=== PATIENT | female | born 1980 | race Caucasian/White ===

== ENCOUNTER 2022-12-22 14:24 | Observation (INO) | payer BC ==
--- OUTSIDE RECORDS SUMMARY | 2022-12-22 14:29 | XMS REPORT | Continuity of Care Document ---
:1980 Author Organization [facility] Address [address] [place] [address] [place] [id number] Care Team Providers Name Role Phone Ngrusty_Tho Attending Clinician Unavailable CHRGERMANEN_F Attending Clinician Unavailable Angelina Attending Clinician Unavailable ZEV RAMIREZ Attending Clinician Unavailable SARWAT Attending Clinician Unavailable KANDY LIAO Attending Clinician Unavailable PORSHA RAMON Attending Clinician Unavailable SUSAN ARMENTA Attending Clinician Unavailable DONN KASPER Attending Clinician Unavailable CAYETANO HAYDEN Attending Clinician Unavailable Ngrusty_Tho Admitting Clinician Unavailable CHRETIEN_F Admitting Clinician Unavailable Torres_cesarkunbi Admitting Clinician Unavailable SARWAT Admitting Clinician Unavailable CAYETANO HAYDEN Admitting Clinician Unavailable Payers Payer Name Policy Type Policy Number Effective Date Expiration Date S dav[place] [id number] 2019 ADVANTAGE (H[place]) 00:00:[place] [id number] 2018 00:00:00 Problems Condition Condition Condition Status Onset Resolution Last Treating Co mments Source Name Details Category Date Date Treatment Clinician Date Systemic Systemic Problem Active [place] lupus Lupus da erythemato Erythemato [facility] Mixed Mixed Problem Active [place] hyperlipid Hyperlipid da emia emia [facility] Body mass Body Mass Problem Active [place] index 30+ Index 30+ da - obesity - 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 Social History Smoking Status Start Date Stop Date Source Never Smoker [facility] Program Medications Ordered Filled Start Stop Current Ordering Indication Dosage Frequency Signature Comments Components Source Medication Medication Date Date Medication? Clinician (SIG) Name Name hydroxychlo hydroxychlo No 1 BID hydroxychl [place] roquine 200 roquine 200 oroquine da mg tablet mg tablet 200 mg Epi scop Take 1 Take 1 tablet al tablet tablet Take 1 Health twice a day twice a day tablet Outreac by oral by oral twice a h route. route. day by Program oral route. lisinopril lisinopril No 1 Q1D lisinopril [place] 10 mg 10 mg 10 mg da tablet Take tablet Take tablet [facility] 1 tablet 1 tablet Take 1 al every day every day tablet Hea lth by oral by oral every day Outr eac route. for route. for by oral h blood blood route. for Program pressure. pressure. blood pressure. hydroxychlo hydroxychlo No hydroxychl [place] roquine 200 roquine 200 oroquine da mg tablet mg tablet 200 mg Epi scop TAKE 1 TAKE 1 tablet al TABLET BY TABLET BY TAKE 1 Hea lth MOUTH TWICE MOUTH TWICE TABLET BY Outreac A DAY A DAY MOUTH h TWICE A Program DAY lisinopril lisinopril No lisinopril [place] 10 mg 10 mg 10 mg da tablet TAKE tablet TAKE tablet [facility] 1 TABLET BY 1 TABLET BY TAKE 1 al MOUTH EVERY MOUTH EVERY TABLET BY Health DAY for DAY for MOUTH Outreac blood blood EVERY DAY h pressure pressure for blood Pr ogram pressure phentermine phentermine No 1 Q1D phentermin [place] 37.5 mg 37.5 mg e 37.5 mg da tablet Take tablet Take tablet [facility] 1 tablet 1 tablet Take 1 al every day every day tablet Hea lth by oral by oral every day Outr eac route in route in by oral h the the route in Program morning. morning. the morning. 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 [facility] Index) Health Outreach Program BP Systolic 2022-08-07 00:00:00 118 [facility] Body Weight 2022-08-07 00:00:00 3730 [facility]oz_av[facility] BP Diastolic 2022-07-06 00:00:00 90 mm[facility]Hg[facility] Height 2022-07-06 00:00:00 65 [in_i] [facility] BMI (Body Mass 2022-07-06 00:00:00 38.8 kg/m2 [place] 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 [facility] Index) Health Outreach Program BP Systolic 2022-07-06 00:00:00 149 mm[facility]Hg[facility] Body Weight 2022-07-06 00:00:00 3728 [oz_av[facility] Procedures Procedure Date / Time Performed Performing Clinician Sourc e Hysterectomy [facility] Hemorrhoidectomy [facility] opal Health Outreach Program Delivery [facility]al [facility] Outreach Program Plan of Care Planned Activity Planned Date Details Comments Source Future Scheduled 2022-07-10 CMP, serum or plasma [place] Test 00:00:00 [code = CMP, serum or [facility] plasma] Outreach Progra m Future Scheduled 2022-07-10 CBC w/ auto diff [code [place] Test 00:00:00 = CBC w/ auto diff] [facility] Future Scheduled 2022-07-10 ESR (erythrocyte [place] Test 00:00:00 sedimentation rate), [facility] blood [code = ESR Outreach P rogram (erythrocyte sedimentation rate), blood] Future Scheduled 2022-07-10 C reactive protein, Sweeney chantal Test 00:00:00 QN, serum or plasma [facility] [code = C reactive Outreach Program protein, QN, serum or plasma] Future Scheduled 2022-07-10 MARQUISE (antinuclear [place] Test 00:00:00 antibodies) panel, [facility] serum [code = MARQUISE Outreach P rogram (antinuclear antibodies) panel, serum] Future Scheduled 2022-07-10 lipid panel, serum [place] Test 00:00:00 [code = lipid panel, [facility] al Health serum] Outreach Progra m Future Scheduled 2022-07-10 HbA1c (hemoglobin [place] 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 Test 00:00:00 A1c), blood [code = [facility] HbA1c (hemoglobin Outreach P rogram A1c), blood] Future Scheduled 2022-07-10 vitamin D, 25-hydroxy, [place] Test 00:00:00 total, serum [code = [facility] vitamin D, 25-hydroxy, Outre ach Program total, serum] Future Scheduled 2022-07-10 rf (rheumatoid [facility] Test 00:00:00 factor), serum [code = [facility] rf (rheumatoid Outreach Prog celestina factor), serum] Future Scheduled 2022-07-10 protein/creatinine, Sweeney chantal Test 00:00:00 ratio, urine [code = [facility] protein/creatinine, Outreach Program ratio, urine] Encounters Start End Encounter Admission Attending Care Care Encounter Source Date/Time Date/Time Type Type Clinicians Facility Department ID 2022-08-25 2022-08-25 Outpatient [facility] [id number] [place] 00:00:00 00:00:00 1108 [facility] 2022-08-25 2022-08-25 [facility] [place] [id number] [place] 00:00:00 00:00:00 0306 [facility] 2022-08-10 2022-08-10 Outpatient [facility] [id number] [place] 00:00:00 00:00:00 1024 [facility] 2022-08-07 2022-08-07 Outpatient [facility] [id number] [place] 00:00:00 00:00:00 1021 [facility] 2022-08-07 2022-08-07 Jaqui [facility] [place] - [id number] Sushma yehgoilan 00:00:00 00:00:00 Aarti Osborn [facility] POSTAL SORTING OFFICER: 09[address] [facility] [phone] Pamella dimas , Ph. 2022-07-28 2022-07-28 Outpatient Ngrusty_Jhony [facility] [id number] [place] 00:00:00 00:00:00 1011 [facility] 2022-07-24 2022-07-24 Outpatient Nguyen_[place] [id number] [place] 00:00:00 00:00:00 1007 [facility] 2022-07-17 2022-07-17 Outpatient Nguyen_Henryo [facility] [id number] [place] 00:00:00 00:00:00 0930 [facility] 2022-07-06 2022-07-06 Outpatient Nguyen_Henryo [facility] [id number] [place] 00:00:00 00:00:00 0919 [facility] 2022-07-06 2022-07-06 Jaqui [facility] [place] - [id number] [place] 00:00:00 00:00:00 Aarti Osborn, [facility] POSTAL SORTING OFFICER: 1700 [facility] [phone] Pamella dimas , Ph. 2022-06-09 2022-06-09 Outpatient CHRETIEN_F [facility] [id number] [place] 00:00:00 00:00:00 [facility] 2021-11-12 2021-11-12 Outpatient Obisesan_ad VAHOP [facility] 875 [place] 05:17:00 05:17:00 ekunbi 0126 [facility] 2020-10-28 2020-10-28 Outpatient Obisesan_ad VAHOP [facility] 875 [place] 05:14:00 05:14:00 ekunbi 0111 [facility] 2020-10-28 2020-10-28 Outpatient Obisesan_ad MEHOP [facility] [id number] [place] 05:14:00 05:14:00 ekunbi 1113 [facility] 2019-09-03 2019-09-04 Emergency ER JAMES, [facility] [id number] [place] 21:40:00 01:36:00 ZEV -[id number] [facility] 2019-08-07 2019-08-07 Outpatient SCHAUBROECK [facility] [id number] [place] 00:00:00 00:00:00 _L 021 [facility] 2019-08-06 2019-08-06 Emergency ER JAMES, [facility] [id number] [place] 19:32:00 23:51:00 ZEV -[id number] [facility] 2009-08-21 2009-08-21 Emergency ER UGORJI, [facility] [id number] [place] 15:06:00 17:58:00 CLEBELLO -[id number] [facility] 2002-08-21 2002-08-21 Outpatient EL YENNY, [facility] [id number] [place] 08:27:00 08:27:00 PALIVEWILL -[id number] [facility] 2001-12-26 2001-12-26 Emergency ER GEOVANY, [facility] [id number] [place] 15:50:00 21:00:00 ASEM -[id number] [facility] 2001-08-20 2001-08-21 Emergency ER UGORJI, [facility] [id number] [place] 23:27:00 03:40:00 CLEBELLO -[id number] [facility] 2001-02-18 2001-02-18 Emergency ER LONC, [facility] [id number] [place] 17:41:00 21:20:00 ADJADAM -[id number] [facility] 2000-05-06 2000-05-06 Emergency EL UGORJI, [facility] [id number] [place] 14:22:00 16:40:00 CLEBELLO -[id number] [facility] 2000-04-06 2000-04-09 Inpatient UR HUCAYETANO Gallagher [facility] [id number] [place] 20:18:00 18:00: -[id number] [facility] 2000-03-11 2000-03-11 Outpatient CAYETANO PELLETIER [facility] D00 [id number] [place] 10:45:00 10:45:00 -[id number] [facility] 2000-03-03 2000-03-03 Outpatient CAYETANO PELLETIER [facility] [id number] [place] 15:18:00 15:18:00 -[id number] [facility] 2000-02-21 2000-02-21 Inpatient CAYETANO PELLETIER [facility] [id number] [place] 18:29:00 21:10:00 -[id number] [facility] 2000-02-18 2000-02-18 Outpatient KEATON HAYDEN [facility] D00 [id number] [place] 10:28:00 10:28:00 -[id number] [facility] 1999-10-22 1999-10-22 Outpatient CAYETANO PELLETIER [facility] D00 [id number] [place] 16:16:00 16:16:00 -[id number] [facility] 1999-10-07 1999-10-07 Outpatient KEATON HAYDEN [facility] D00 [id number] [place] 15:21:00 15:21:00 -[id number] [facility] Results Test Description Test Time Test Comments Results Result Comments Source Comprehensive metabolic 2000 panel - Serum or Plasma 2022-07 00:00:00 Test Item Value Reference Range Interpretation Comme nts Glucose [Mass/volume] in Serum or Plasma (test code = 82 mg/dL 70-99 2345-7) Urea nitrogen [Mass/volume] in Serum or Plasma (test 15 mg/dL 6 -24 code = 3094-0) Creatinine [Mass/volume] in Serum or Plasma (test code = 1.00 mg/dL 0.57-1.00 0-0) eGFR (test code = eGFR) 72 mL/min/1.73 >59 Urea nitrogen/Creatinine [Mass Ratio] in Serum or Plasma 15 - (test code = 3097-3) Sodium [Moles/volume] in Serum or Plasma (test code = 137 mmol/L 212-039 7616-2) Potassium [Moles/volume] in Serum or Plasma (test code = 4.6 mmol/L 3.5-5.2 2823-3) Chloride [Moles/volume] in Serum or Plasma (test code = 97 mmol/L 96-106 2075-0) Carbon dioxide, total [Moles/volume] in Serum or Plasma 25 mmol/L 20-29 (test code = 2027-) Calcium [Mass/volume] in Serum or Plasma (test code = 9.1 mg/dL 8.7-10.2 00507-5) Protein [Mass/volume] in Serum or Plasma (test code = 6.8 g/dL 6.0-8.5 5-2) Albumin [Mass/volume] in Serum or Plasma (test code = 4.8 g/dL 3.8-4.8 1750-7) Globulin [Mass/volume] in Serum by calculation (test 2.0 g/dL 1 .5-4.5 code = 62331-1) Albumin/Globulin [Mass Ratio] in Serum or Plasma (test 2.4 1.2-2.2 H code = 1759-0) Bilirubin.total [Mass/volume] in Serum or Plasma (test 0.5 mg/dL 0.0-1.2 code = 1974-2) Alkaline phosphatase [Enzymatic activity/volume] in 65 IU/L 44 -121 Serum or Plasma (test code = 6768-6) Aspartate aminotransferase [Enzymatic activity/volume] 19 IU/L 0-40 in Serum or Plasma (test code = 1920-8) Alanine aminotransferase [Enzymatic activity/volume] in 23 IU/L 0-32 Serum or Plasma (test code = 1742-6) [facility] W Auto Differential panel - Blood 2022-07-18 00:00:00 Test Item Value Reference Range Interpretation Comments Leukocytes [#/volume] in Blood 7.5 x10e3/uL 3.4-10.8 by Automated count (test code = 6690-2) Erythrocytes [#/volume] in 5.05 x10e6/uL 3.77-5.28 Blood by Automated count (test code = 789-8) Hemoglobin [Mass/volume] in 13.3 g/dL 11.1-15.9 Blood (test code = 718-7) Hematocrit [Volume Fraction] of 41.9 % 34.0-46.6 Blood by Automated count (test code = 4544-3) Erythrocyte mean corpuscular 83 fL 79-97 volume [Entitic volume] by Automated count (test code = 787-2) Erythrocyte mean corpuscular 26.3 pg 26.6-33.0 L hemoglobin [Entitic mass] by Automated count (test code = 785-6) Erythrocyte mean corpuscular 31.7 g/dL 31.5-35.7 hemoglobin concentration [Mass/volume] by Automated count (test code = 786-4) Erythrocyte distribution width 14.3 % 11.7-15.4 [Ratio] by Automated count (test code = 788-0) Platelets [#/volume] in Blood 299 x10e3/uL 150-450 by Automated count (test code = 777-3) Neutrophils/100 leukocytes in 65 % not estab. Blood by Automated count (test code = 770-8) Lymphocytes/100 leukocytes in 25 % not estab. Blood by Automated count (test code = 736-9) Monocytes/100 leukocytes in 7 % not estab. Blood by Automated count (test code = 5905-5) Eosinophils/100 leukocytes in 1 % not estab. Blood by Automated count (test code = 713-8) Basophils/100 leukocytes in 1 % not estab. Blood by Automated count (test code = 706-2) immature cells (test code = biometrics head immature cells) Neutrophils [#/volume] in Blood 4.9 x10e3/uL 1.4-7.0 by Automated count (test code = 751-8) Lymphocytes [#/volume] in Blood 1.9 x10e3/uL 0.7-3.1 by Automated count (test code = 731-0) Monocytes [#/volume] in Blood 0.5 x10e3/uL 0.1-0.9 by Automated count (test code = 742-7) Eosinophils [#/volume] in Blood 0.1 x10e3/uL 0.0-0.4 by Automated count (test code = 711-2) Basophils [#/volume] in Blood 0.1 x10e3/uL 0.0-0.2 by Automated count (test code = 704-7) Immature granulocytes/100 1 % not estab. leukocytes in Blood by Automated count (test code = 47242-1) Immature granulocytes 0.0 x10e3/uL 0.0-0.1 [#/volume] in Blood by Automated count (test code = 08417-4) Nucleated erythrocytes/100 biometrics head leukocytes [Ratio] in Blood by Automated count (test code = 64240-0) Morphology [Interpretation] in biometrics head Blood Narrative (test code = 96236-5) [facility] - Serum 2022-07-18 00:00:00 Test Item Value Reference Range Interpretation Comments DNA double strand Ab [Units/volume] <1 0-9 in Serum (test code = 5130-0) Ribonucleoprotein extractable nuclear <0.2 0.0-0.9 Ab [Units/volume] in Serum (test code = 54523-2) Buitrago extractable nuclear Ab <0.2 0.0-0.9 [Units/volume] in Serum (test code = 47361-7) SCL-70 extractable nuclear Ab <0.2 0.0-0.9 [Units/volume] in Serum (test code = 61997-3) Sjogrens syndrome-A extractable <0.2 0.0-0.9 nuclear Ab [Units/volume] in Serum (test code = 62557-2) Sjogrens syndrome-B extractable <0.2 0.0-0.9 nuclear Ab [Units/volume] in Serum (test code = 01652-9) Chromatin Ab [Units/volume] in Serum <0.2 0.0-0.9 or Plasma (test code = 38844-5) Virgen-1 extractable nuclear Ab <0.2 0.0-0.9 [Units/volume] in Serum (test code = 22843-2) Centromere protein B Ab <0.2 0.0-0.9 [Units/volume] in Serum (test code = 92367-0) see below: (test code = see below:) comment [facility] panel - Serum or Plasma 2022-07-18 00:00:00 Test Item Value Reference Range Interpretation Comments Cholesterol [Mass/volume] in Serum 320 mg/dL 100-199 H or Plasma (test code = 2093-3) Triglyceride [Mass/volume] in Serum 82 mg/dL 0-149 or Plasma (test code = 2571-8) Cholesterol in HDL [Mass/volume] in 57 mg/dL >39 Serum or Plasma (test code = 2085-9) Cholesterol in VLDL [Mass/volume] 13 mg/dL 5-40 in Serum or Plasma by calculation (test code = 50358-0) Cholesterol in LDL [Mass/volume] in 250 mg/dL 0-99 H Serum or Plasma by calculation (test code = 84107-0) Laboratory comment [Text] in Report biometrics head Narrative (test code = 15940-4) [facility] A1c/Hemoglobin.total in [id number] 00:00:00 Test Item Value Reference Range Interpretation Comments Hemoglobin A1c/Hemoglobin.total in 5.2 % 4.8-5.6 Blood (test code = 4548-4) [facility] factor [Units/volume] in Serum or [id number] 00:00:00 Test Item Value Reference Range Interpretation Comments Rheumatoid factor [Units/volume] in <10.0 <14.0 Serum or Plasma (test code = 69120-0) [facility]-Hydroxyvitamin D3+25- Hydroxyvitamin D2 [Mass/volume] in Serum or [id number] 00:00:00 Test Item Value Reference Range Interpretation Comments 25-Hydroxyvitamin 32.5 NG/mL 30.0-100.0 D3+25-Hydroxyvitamin D2 [Mass/volume] in Serum or Plasma (test code = 51143-6) [facility] sedimentation rate 2022-07-18 00:00:00 Test Item Value Reference Range Interpretation Comments Erythrocyte sedimentation rate by 6 mm/HR 0-32 Westergren method (test code = 4537-7) [facility] reactive protein [Mass/volume] in Serum or [id number] 00:00:00 Test Item Value Reference Range Interpretation Comments C reactive protein [Mass/volume] in 8 mg/L 0-10 Serum or Plasma (test code = 1988-) [facility] panel, [id number] 00:00:00 Test Item Value Reference Range Interpretation Comments Interpretation and review of note laboratory results (test code = 33157-4) Report (test code = 25476-9) not applicable [facility]
[2022-12-22 15:01] LABS: Absolute Lymphocytes (CBC) 1.6 K/uL (0.7-4.9); Hematocrit 37.9 % (36.0-45.0); Lymphocytes % 18.2 % (15.3-44.8); MCV 79.7 fL (80-100); MPV 7.7 fL (7.6-11.3); RBC Red Blood Cell Count 4.76 M/uL (3.86-4.86)
[2022-12-22 15:12] LABS: Albumin 3.9 g/dL (3.4-5.0); Bilirubin Total 0.4 mg/dL (0.2-1.0); Potassium 4.1 mmol/L (3.5-5.1); Protein, Total 7.3 g/dL (6.4-8.2)
--- NOTE | 2022-12-22 15:33 | RAD REPORT ---
EXAM DESCRIPTION: US - Abdomen Exam Limited - 12/22/2022 3:28 pm CLINICAL HISTORY: ABD PAIN COMPARISON: No comparisons FINDINGS: The gallbladder demonstrates cholelithiasis. No pericholecystic fluid or gallbladder wall thickening. The common bile duct is normal measuring 4 mm. The liver demonstrates no findings of intrahepatic biliary dilatation. IMPRESSION: Cholelithiasis.
--- NOTE | 2022-12-22 15:50 | RAD REPORT ---
EXAM DESCRIPTION: CTAbdomen Pelvis W Contrast - 12/22/2022 3:39 pm CLINICAL HISTORY: Abdominal pain. ABD PAIN COMPARISON: Abdomen Exam Limited dated 12/22/2022 TECHNIQUE: Biphasic CT imaging of the abdomen and pelvis was performed with 100 ml non-ionic IV cont rast. All CT scans are performed using dose optimization technique as appropriate and may include automated exposure control or mA/KV adjustment according to patient size. FINDINGS: The lung bases are clear. The liver, spleen, pancreas, adrenal glands and kidneys are within normal limits. Cholelithiasis. No bowel obstruction, free air, free fluid or abscess. Moderate stool throughout the colon. The appen kushal is normal. 4.3 cm right adnexal cyst. No evidence of significant lymphadenopathy. No suspicious bony findings. IMPRESSION: No acute intra-abdominal or pelvic finding. Cholelithiasis.
[2022-12-22 16:09] LABS: Urine Blood Negative (Negative); Urine Glucose Negative (Negative); Urine Protein Negative (Negative); Urine Specific Gravity 1.015 (1.005-1.030); Urine pH 7.5 (5.0-7.0)
[2022-12-22 16:23] LABS: Urine Bacteria None Seen /HPF (<20); Urine Mucus Slight /HPF (None Seen); Urine RBC <5 /HPF (None Seen)
[2022-12-22 16:29] LABS: Urine Specific Gravity/Preg 1.015 (1.005-1.030)
[2022-12-22 16:50] LABS: SARS-CoV-2 Antigen Rapid Res Negative (Negative)
[2022-12-22] MEDS ORDERED: PANTOPRAZOLE 40 MG INJ ONE ×2 (16:56→20:54)
[2022-12-22] MEDS ORDERED: ONDANSETRON 4 MG/2 ML VIAL ONE ×3 (16:56→22:44)
[2022-12-22] MEDS ORDERED: HYDROMORPHONE HCL 1 MG/ML INJ ONE (16:56)
[2022-12-22] MEDS ORDERED: NA CHLORIDE 0.9% 100 ML ONE ×2 (16:57→20:55)
[2022-12-22] MEDS ORDERED: PIPERACIL/TAZO 3.375 GM VIAL IV ONE ×3 (16:57→20:55)
[2022-12-22] MEDS ORDERED: NA CHLORIDE 0.9% 1,000 ML ONE (18:16)
--- NOTE | 2022-12-22 18:18 | RAD REPORT ---
EXAM DESCRIPTION: US - Extrem Venous W Compress Min - 12/22/2022 5:58 pm CLINICAL HISTORY: PAIN Bilateral leg edema and swelling. COMPARISON: No comparisons TECHNIQUE: Real-time sonographic interrogation of the left and right lower extremity deep venous sys tems was performed. FINDINGS: Normal compressibility, flow augmentation, phasic flow and spontaneous flow is identified in both the left and right lower extremity deep venous systems. IMPRESSION: No sonographic evidence of left or right lower extremity deep venous thrombosis.
[2022-12-22] MEDS ORDERED: SODIUM CHLORIDE 0.9% 10ML INJ IV PRN (18:50)
[2022-12-22] MEDS ORDERED: ACETAMINOPHEN 500 MG TAB PO PRN (18:50)
[2022-12-22] MEDS ORDERED: D5 0.45 NS 1,000 ML IV ONE (19:02)
[2022-12-22] MEDS ORDERED: FAMOTIDINE 20 MG/2 ML VIAL IV ONE (19:23)
[2022-12-22] MEDS: D5 0.45 NS 1,000 ML IV SCH (19:35)
[2022-12-22 20:54] VITALS: BMI 29.6
[2022-12-22] MEDS ORDERED: MORPHINE 4 MG/ML SYR ONE (22:01)
[2022-12-22] MEDS: MORPHINE 4 MG/ML SYR IV PRN (22:01)
[2022-12-22] MEDS: ONDANSETRON 4 MG/2 ML VIAL IV PRN (22:41)
[2022-12-23] MEDS: PIPER TAZO 3.375 GM in NA CHLORIDE 0.9% 100 ML IV SCH ×3 (01:00→16:32)
[2022-12-23] MEDS: D5 0.45 NS 1,000 ML IV SCH ×3 (02:50→23:38)
[2022-12-23 02:54] LABS: Absolute Lymphocytes (CBC) 1.2 K/uL (0.7-4.9); Hematocrit 33.4 % (36.0-45.0); Lymphocytes % 13.4 % (15.3-44.8); MCV 80.5 fL (80-100); MPV 7.8 fL (7.6-11.3); RBC Red Blood Cell Count 4.14 M/uL (3.86-4.86)
[2022-12-23 03:01] LABS: Potassium 4.1 mmol/L (3.5-5.1)
[2022-12-23] MEDS ORDERED: D5 0.45 NS 1,000 ML IV ONE (03:53)
[2022-12-23] MEDS ORDERED: ONDANSETRON 4 MG/2 ML VIAL ONE ×2 (04:03→11:00)
[2022-12-23] MEDS ORDERED: MORPHINE 4 MG/ML SYR ONE ×2 (04:03→13:02)
[2022-12-23] MEDS: PANTOPRAZOLE 40 MG INJ IVP SCH ×3 (04:05→20:44)
[2022-12-23] MEDS: ONDANSETRON 4 MG/2 ML VIAL IV PRN ×2 (04:08→10:45)
[2022-12-23] MEDS: MORPHINE 4 MG/ML SYR IV PRN ×2 (04:08→12:59)
[2022-12-23] MEDS ORDERED: NA CHLORIDE 0.9% 100 ML ONE (08:23)
[2022-12-23] MEDS ORDERED: PANTOPRAZOLE 40 MG INJ ONE (08:23)
[2022-12-23] MEDS ORDERED: PIPERACIL/TAZO 3.375 GM VIAL IV ONE (08:24)
--- NOTE | 2022-12-23 13:21 | RAD REPORT ---
EXAM DESCRIPTION: NM - Hepatobiliary System W/ Ph - 12/23/2022 1:10 pm CLINICAL HISTORY: RUQ pain COMPARISON: No comparisons TECHNIQUE: The patient was administered 6.2 mCi Tc99m Choletec. Imaging of the right upper quadrant was performed initially for up to 60 minutes. Gallbladder ejection fraction determination was then performed utilizing synthetic 1.7 mgm CCK over a slow 30 minute infusion. FINDINGS: Normal hepatic uptake and excretion with appropriate clearance of background blood pool ac tivity. Normal visualization of biliary and small bowel activity. Gallbladder visualizes within normal time limits. The calculated ejection fraction is 28% (normal gre ater than 35%). Subjective pain reported by the patient: Pre-procedure - mild discomfort. During or subsequent to synthetic CCK infusion - slight increased discomfort. IMPRESSION: Patient cystic duct and patent sphincter of Oddi. No delay in visualization of the gallb ladder, biliary tree, or duodenum. Ejection fraction is 28% (normal greater than 35%). Subjective patient pain assessment as detailed above.
[2022-12-24] MEDS: PIPER TAZO 3.375 GM in NA CHLORIDE 0.9% 100 ML IV SCH ×3 (00:24→16:25)
[2022-12-24 04:34] LABS: Absolute Lymphocytes (CBC) 1.3 K/uL (0.7-4.9); Hematocrit 32.2 % (36.0-45.0); Lymphocytes % 21.3 % (15.3-44.8); MCV 80.6 fL (80-100); MPV 7.7 fL (7.6-11.3); RBC Red Blood Cell Count 3.99 M/uL (3.86-4.86)
[2022-12-24 04:50] LABS: Magnesium 2.4 mg/dL (1.6-2.4); Phosphorus 3.3 mg/dL (2.5-4.9); Potassium 3.8 mmol/L (3.5-5.1)
[2022-12-24] MEDS: D5 0.45 NS 1,000 ML IV SCH ×3 (06:40→16:25)
[2022-12-24] MEDS: MORPHINE 4 MG/ML SYR IV PRN ×2 (07:05→20:18)
[2022-12-24] MEDS: ONDANSETRON 4 MG/2 ML VIAL IV PRN ×2 (07:06→20:17)
[2022-12-24] MEDS ORDERED: Ringers Lactate 1,000 ML IV ONE (07:38)
[2022-12-24] MEDS ORDERED: BUPIVACAINE 0.25% PF 10 ML VIAL ONE (07:41)
[2022-12-24] MEDS ORDERED: MIDAZOLAM HCL 2 MG/2 ML INJ ONE (08:27)
[2022-12-24] MEDS ORDERED: FENTANYL CITR 100 MCG/2 ML ONE (08:27)
[2022-12-24] MEDS ORDERED: propofoL 200 MG/20 ML VIAL IV ONE (08:27)
[2022-12-24] MEDS ORDERED: ROCURONIUM 50 MG/5 ML VIAL IV ONE (08:27)
[2022-12-24] MEDS ORDERED: LIDOCAINE 2% MPF 5 ML VIAL ONE (08:28)
[2022-12-24] MEDS ORDERED: ONDANSETRON 4 MG/2 ML VIAL ONE ×3 (08:28→11:24)
[2022-12-24] MEDS: PANTOPRAZOLE 40 MG INJ IVP SCH ×2 (09:00→20:17)
[2022-12-24] MEDS ORDERED: dexAMETHasone 10 MG/ML VIAL ONE (10:20)
--- NOTE | 2022-12-24 10:55 | P.OP ---
Preoperative diagnosis: Chronic Cholecystitis Postoperative diagnosis: Chronic Cholecystitis Primary procedure: Laparoscopic Cholecystectomy with ICG Anesthesia: GETA + Local Estimated blood loss: <5cc Specimen: Gallbladder Findings: thin walled dilated gallbladder Complications: None Transferred to: Recovery Room Condition: Good
[2022-12-24] MEDS ORDERED: GLYCOPYRROLATE 0.2 MG/ML SYR ONE (10:56)
[2022-12-24] MEDS ORDERED: NEOSTIGMINE 1 MG/ML -10 ML VIAL ONE (10:56)
[2022-12-24] MEDS ORDERED: KETOROLAC 30 MG/ML INJ ONE (11:03)
[2022-12-24] MEDS: HYDROMORPHONE HCL 1 MG/ML INJ ONE ×2 (11:20→11:25)
--- NOTE | 2022-12-24 11:35 | OP ---
Date of Procedure: 12/24/2022 Surgeon: Nehemiah Villegas MD, Preoperative Diagnosis: Chronic cholecystitis/biliary dyskinesia. Postoperative Diagnosis: Chronic cholecystitis/biliary dyskinesia. Procedure Performed: Laparoscopic cholecystectomy with indocyanine green cholangiography. Anesthesia: General endotracheal plus local with 0.25% Marcaine. Estimated Blood Loss: Less than 5 cc. Specimen: Gallbladder. Findings: Thin, wall dilated gallbladder. Complications: None. Disposition: The patient was transferred to the recovery room in good condition. Procedure In Detail: After informed consent was obtained, the patient was brought to the operating r oom, prepped and draped in the usual sterile fashion after adequate anesthesia was achieved. The sup raumbilical area was anesthetized with 0.25% Marcaine, sharply incised. A 5 mm trocar was placed und er direct visualization without evidence of complication. Insufflation was obtained to 15 mmHg at th is time. There was no injury to vital structures upon entry into the abdomen. Two additional trocar s were placed, 1 in the epigastrium and 1 in the right upper quadrant. Both of these were similarly anesthetized, sharply incised. A 5 mm trocar was placed under direct visualization without evidence of complication. The umbilical trocar was then upsized to a 12 mm under direct visualization without evidence of complication. The patient was positioned head up right-side up position. A Ratcheted g rasper was used to grasp the patient's gallbladder, placed it toward the patient's right shoulder. D issection continued down to the Eder pouch of the gallbladder to expose the cystic duct and cysti c artery. These structures were skeletonized. Simple traction of the gallbladder caused an opening of the gallbladder wall, which was found to be quite thin and frail down near the confluence of the c ystic duct. Bile spillage was appreciated at this point. This area was suctioned out until complete ly clear. ICG cholangiography confirmed the position of the common duct junction far away from our d issection plane. I then after appropriately skeletonizing the structures and obtaining the critical view of safety placed double titanium clips on the proximal side, singly on this side on both cystic duct and cystic artery. These structures were then ligated with Endo Tobin. At this point, the gal lbladder was then removed from the hepatic fossa without evidence of complication using electrocauter y, placed in EndoCatch bag, and removed through the umbilical trocar site and sent off for pathologic examination. The area was copiously irrigated. I used indocyanine green once again to confirm that the common duct was intact. It appeared to be intact without any spillage of bile. The remaining e ffluent was suctioned out until completely dry. The patient was positioned back in neutral position. The 12 mm trocar was removed. The 12 mm trocar site was then closed using a Laurent-Chrissie suture passer with 0 Vicryl in an interrupted fashion with good approximation of tissues. The abdomen was completely desufflated under direct visualization without evidence of complication. The remaining tr ocars were removed. All skin incisions were then copiously irrigated and closed with a 4-0 Monocryl in running fashion. Dermabond placed over top. The patient tolerated the procedure well without km dence of complication and transferred to PACU in good condition. All counts were correct at the end of the case. LOC/MONIQUE Voice ID: [id number] Report ID: [id number]
[2022-12-24] MEDS: HYDROCODONE/APAP 5/325 MG TAB PO PRN ×2 (16:27→22:23)
[2022-12-25] MEDS: D5 0.45 NS 1,000 ML IV SCH (00:01)
[2022-12-25] MEDS: HYDROCODONE/APAP 5/325 MG TAB PO PRN ×2 (02:54→08:37)
[2022-12-25 05:00] LABS: Absolute Lymphocytes (CBC) 0.8 K/uL (0.7-4.9); Hematocrit 32.4 % (36.0-45.0); Lymphocytes % 5.8 % (15.3-44.8); MCV 80.3 fL (80-100); MPV 8.3 fL (7.6-11.3); RBC Red Blood Cell Count 4.03 M/uL (3.86-4.86)
[2022-12-25 05:14] LABS: Albumin 3.2 g/dL (3.4-5.0); Bilirubin Total 0.5 mg/dL (0.2-1.0); Potassium 4.2 mmol/L (3.5-5.1); Protein, Total 6.1 g/dL (6.4-8.2)
[2022-12-25 08:21] VITALS: BP 106/43; TEMP 96.8
[2022-12-25] MEDS: PANTOPRAZOLE 40 MG INJ IVP SCH (08:37)
[2022-12-25] MEDS: PIPER TAZO 3.375 GM in NA CHLORIDE 0.9% 100 ML IV SCH ×3 (09:00)
[2022-12-25] MEDS ORDERED: ACETAMINOPHEN 325 MG TABLET PO PRN (09:03)
[2022-12-25 10:27] VITALS: O2SAT 90
== END 2022-12-25 09:34 | disposition home or self-care (01) ==
LOC: ER 14:24 → ERHOLD 16:45 → 4TH 12-23 16:12
PROVIDERS: ADMIT Surgery; ATTEND Surgery
PROC: 0FT44ZZ Resection of Gallbladder, Percutaneous Endoscopic Approach (ICD-10-PCS; principal; 2022-12-22)
PROC: BF13YZZ Fluoroscopy of Gallbladder and Bile Ducts using Other Contrast (ICD-10-PCS; 2022-12-22)
DX: K80.10 Calculus of gallbladder with chronic cholecystitis without obstruction (principal); K82.8 Other specified diseases of gallbladder; Z20.822 Contact with and (suspected) exposure to COVID-19
CPT/HCPCS: 96365; 85025 ×4; 80048 ×2; 36415 ×2; 83735; 81025; 84100; 88304; 83690 ×2; 80053 ×2; 74177; 93970; 76705; 78227; 96375; 99283; 96366; 87811; 47563; Q9967; J2704; J2710; J2543 ×8; J2001; C9113 ×5; J2250; J3010; J1100; J1170 ×2; J2405 ×10; J7799 ×5; J7120; J7030; J2805; A9537; 81003; 81015